=== PATIENT | male | born 1945 | race Caucasian/White ===

== ENCOUNTER 2023-05-07 18:54 | Inpatient (IN) | payer MEDICARE, OTHER ==
[~2023-05-07] VITALS: Ht 172.7 cm; Wt 67.1 kg
[2023-05-07 20:00] VITALS: BP 143/82; TEMP 97.9; O2SAT 94
[2023-05-07] MEDS ORDERED: MAGNESIUM HYDROXIDE 30 ML LIQUID UDC PO PRN (20:30)
[2023-05-07] MEDS ORDERED: MAG HYDROX/AL HYDROX/SIMETH 30 ML LIQUID UDC PO PRN (20:30)
[2023-05-07] MEDS ORDERED: OLAN2.5T3 PO (21:26)
[2023-05-07] MEDS ORDERED: BENZ0.5T43 PO (21:26)
[2023-05-07] MEDS ORDERED: AMLO5TAB4 PO (21:26)
[2023-05-07] MEDS ORDERED: TIOT18CA3 INH (21:26)
[2023-05-07] MEDS ORDERED: FAMO10TA41 PO (21:26)
[2023-05-07] MEDS ORDERED: DUTA0.5C37 PO (21:26)
[2023-05-07] MEDS ORDERED: DIVA-78 PO (21:26)
[2023-05-07] MEDS ORDERED: TAMS-3 PO (21:26)
[2023-05-07] MEDS: LORAZEPAM 0.5 MG TABLET PO PRN (22:38)
[2023-05-08] MEDS: TEMAZEPAM 7.5 MG CAPSULE PO PRN (02:13)
[2023-05-08 07:44] VITALS: BP 110/59; TEMP 98; O2SAT 98
[2023-05-08] MEDS: LORAZEPAM 0.5 MG TABLET PO PRN (09:34)
[2023-05-08] MEDS: DIVALPROEX SPRINKLE 125 MG CAP.SPRINK PO SCH ×2 (11:20→21:17)
[2023-05-08] MEDS: BENZTROPINE MESYLATE 0.5 MG TABLET PO SCH ×2 (11:20→17:16)
[2023-05-08] MEDS ORDERED: FLUO5DRO7 LEFTEYE (12:05)
[2023-05-08] MEDS ORDERED: PRAM0.253 PO (12:05)
[2023-05-08] MEDS ORDERED: MULT-1119 PO (12:05)
[2023-05-08] MEDS ORDERED: CHOL400C8 PO (12:05)
[2023-05-08] MEDS ORDERED: FAMO20TA8 PO (12:05)
[2023-05-08] MEDS ORDERED: DOCU-141 PO (12:05)
[2023-05-08] MEDS ORDERED: LATA2.5D15 EACHEYE (12:05)
[2023-05-08] MEDS ORDERED: ATOR20TA PO (12:05)
[2023-05-08] MEDS ORDERED: DEUT12TA PO (12:05)
[2023-05-08] MEDS ORDERED: HOME MED MISCELLANEOUS XX SCH (15:45)
[2023-05-08 16:07] VITALS: BP 107/70; TEMP 98.1; O2SAT 97
[2023-05-08] MEDS: AUSTEDO 12 MG PO SCH (17:30)
[2023-05-08 20:00] VITALS: BP 100/61; TEMP 97.8; O2SAT 93
[2023-05-08] MEDS ORDERED: OLANZAPINE 2.5 MG TABLET PO SCH (21:00)
[2023-05-09] MEDS: TEMAZEPAM 7.5 MG CAPSULE PO PRN (01:45)
[2023-05-09 08:16] VITALS: BP 142/84; TEMP 98; O2SAT 98
[2023-05-09] MEDS: DIVALPROEX SPRINKLE 125 MG CAP.SPRINK PO SCH ×2 (08:48→20:27)
[2023-05-09] MEDS: BENZTROPINE MESYLATE 0.5 MG TABLET PO SCH ×2 (08:48→17:15)
[2023-05-09] MEDS: AUSTEDO 12 MG PO SCH ×2 (08:51→17:16)
[2023-05-09 16:19] VITALS: BP 140/72; TEMP 98; O2SAT 97
[2023-05-09 19:49] VITALS: BP 146/76; TEMP 98.1; O2SAT 96
[2023-05-09] MEDS: OLANZAPINE 2.5 MG TABLET PO SCH (20:27)
[2023-05-09] MEDS: LORAZEPAM 0.5 MG TABLET PO PRN (22:44)
[2023-05-10] MEDS: LORAZEPAM 0.5 MG TABLET PO PRN (04:55)
[2023-05-10 07:54] VITALS: BP 136/79; TEMP 98; O2SAT 98
[2023-05-10] MEDS: AUSTEDO 12 MG PO SCH ×2 (08:38→17:14)
[2023-05-10] MEDS: BENZTROPINE MESYLATE 0.5 MG TABLET PO SCH ×2 (08:38→16:39)
[2023-05-10] MEDS: DIVALPROEX SPRINKLE 125 MG CAP.SPRINK PO SCH ×2 (08:38→20:39)
[2023-05-10 16:03] VITALS: BP 113/67; TEMP 98.1; O2SAT 98
[2023-05-10 20:00] VITALS: BP 130/71; TEMP 97.9; O2SAT 96
[2023-05-10] MEDS: OLANZAPINE 2.5 MG TABLET PO SCH (20:39)
[2023-05-10] MEDS: TEMAZEPAM 7.5 MG CAPSULE PO PRN (22:32)
[2023-05-11 07:39] LABS: BASOPHILS # (AUTO) 0.1 K/UL (0.0-0.2); BASOPHILS % (AUTO) 0.9 % (0.0-2.0); EOSINOPHILS % (AUTO) 0.5 % (0.0-7.0); HEMOGLOBIN 13.4 g/dL (12.5-16.3); LYMPHOCYTES # (AUTO) 1.5 K/uL (0.8-4.8); LYMPHOCYTES % (AUTO) 24.1 % (20.5-51.5); MEAN CORPUSCULAR HEMOGLOBIN 28.9 uug (23.8-33.4); MEAN CORPUSCULAR HGB CONC 33 g/dL (32.5-36.3); MEAN CORPUSCULAR VOLUME 88.2 fL (73.0-96.2); MONOCYTES # (AUTO) 0.6 K/uL (0.1-1.30); MONOCYTES % (AUTO) 9.1 % (0.0-11.0); NEUTROPHILS # (AUTO) 4.1 K/uL (1.8-8.9); NEUTROPHILS % (AUTO) 65.4 % (38.5-71.5); PLATELET COUNT (AUTO) 265 K/uL (152-348); RED BLOOD CELL COUNT(AUTO) 4.64 MIL/uL (4.06-5.63); RED CELL DISTRIBUTION WIDTH 18.6 % (12.1-16.2); WHITE BLOOD COUNT (AUTO) 6.3 K/uL (3.6-10.2)
[2023-05-11 07:42] LABS: DIFFERENTIAL COMMENT 1
[2023-05-11 07:58] LABS: ALANINE AMINOTRANSFERASE 17 U/L (16-63); ALKALINE PHOSPHATASE 87 U/L (50-136); ASPARTATE AMINOTRANSFERASE 13 U/L (15-37); BILIRUBIN,TOTAL 0.4 mg/dL (0.2-1.0); CARBON DIOXIDE 35 mmol/L (21-32); CHLORIDE 106 mmol/L (98-107); CREATININE 1.6 mg/dL (0.6-1.3); GLUCOSE 91 mg/dL (74-106); POTASSIUM 4.3 mmol/L (3.5-5.1); SODIUM SERUM 145 mmol/L (136-145); TOTAL PROTEIN, SERUM 8.7 g/dL (6.4-8.2); UREA NITROGEN, BLOOD 55 mg/dL (7-18); VALPROIC ACID 38 ug/mL (50-100)
[2023-05-11] MEDS: DIVALPROEX SPRINKLE 125 MG CAP.SPRINK PO SCH ×3 (09:22→17:00)
[2023-05-11] MEDS: BENZTROPINE MESYLATE 0.5 MG TABLET PO SCH ×2 (09:22→16:59)
[2023-05-11] MEDS: AUSTEDO 12 MG PO SCH ×2 (09:22→17:06)
[2023-05-11 09:39] VITALS: BP 139/85; TEMP 98.2; O2SAT 96
[2023-05-11 15:30] VITALS: BP 140/68; TEMP 98; O2SAT 98
[2023-05-11 19:39] VITALS: BP 119/80; TEMP 98; O2SAT 94
[2023-05-11] MEDS: OLANZAPINE 2.5 MG TABLET PO SCH (20:07)
[2023-05-11] MEDS: LORAZEPAM 0.5 MG TABLET PO PRN (21:19)
[2023-05-12] MEDS: TEMAZEPAM 7.5 MG CAPSULE PO PRN ×2 (01:20→21:52)
[2023-05-12 07:45] VITALS: BP 102/70; TEMP 98; O2SAT 100
[2023-05-12 07:46] LABS: BASOPHILS # (AUTO) 0.1 K/UL (0.0-0.2); BASOPHILS % (AUTO) 0.7 % (0.0-2.0); EOSINOPHILS % (AUTO) 0.4 % (0.0-7.0); HEMATOCRIT 39.4 % (36.7-47.1); HEMOGLOBIN 12.9 g/dL (12.5-16.3); LYMPHOCYTES # (AUTO) 1.5 K/uL (0.8-4.8); LYMPHOCYTES % (AUTO) 21.3 % (20.5-51.5); MEAN CORPUSCULAR HEMOGLOBIN 29.1 uug (23.8-33.4); MEAN CORPUSCULAR HGB CONC 33 g/dL (32.5-36.3); MEAN CORPUSCULAR VOLUME 89.3 fL (73.0-96.2); MONOCYTES # (AUTO) 0.6 K/uL (0.1-1.30); MONOCYTES % (AUTO) 8.8 % (0.0-11.0); NEUTROPHILS # (AUTO) 4.9 K/uL (1.8-8.9); NEUTROPHILS % (AUTO) 68.8 % (38.5-71.5); PLATELET COUNT (AUTO) 290 K/uL (152-348); RED BLOOD CELL COUNT(AUTO) 4.42 MIL/uL (4.06-5.63); RED CELL DISTRIBUTION WIDTH 18.5 % (12.1-16.2); WHITE BLOOD COUNT (AUTO) 7.1 K/uL (3.6-10.2)
[2023-05-12 07:48] LABS: DIFFERENTIAL COMMENT 1
[2023-05-12 08:06] LABS: ALANINE AMINOTRANSFERASE 17 U/L (16-63); ALBUMIN 2.9 g/dL (3.4-5.0); ALKALINE PHOSPHATASE 88 U/L (50-136); ASPARTATE AMINOTRANSFERASE 22 U/L (15-37); BILIRUBIN,TOTAL 0.4 mg/dL (0.2-1.0); CARBON DIOXIDE 34 mmol/L (21-32); CHLORIDE 106 mmol/L (98-107); CREATININE 1.6 mg/dL (0.6-1.3); GLUCOSE 99 mg/dL (74-106); MAGNESIUM 2.6 mg/dL (1.8-2.4); PHOSPHOROUS 4.2 mg/dL (2.5-4.9); POTASSIUM 4.3 mmol/L (3.5-5.1); SODIUM SERUM 145 mmol/L (136-145); TOTAL PROTEIN, SERUM 8.2 g/dL (6.4-8.2); UREA NITROGEN, BLOOD 60 mg/dL (7-18)
[2023-05-12] MEDS: BENZTROPINE MESYLATE 0.5 MG TABLET PO SCH ×2 (08:27→16:54)
[2023-05-12] MEDS: AUSTEDO 12 MG PO SCH ×2 (08:30→17:04)
[2023-05-12] MEDS: DIVALPROEX SPRINKLE 125 MG CAP.SPRINK PO SCH ×3 (08:30→16:55)
[2023-05-12 15:23] VITALS: BP 93/54; TEMP 98; O2SAT 96
[2023-05-12 20:00] VITALS: BP 111/61; TEMP 97.9; O2SAT 92
[2023-05-12] MEDS: OLANZAPINE 2.5 MG TABLET PO SCH (20:06)
[2023-05-13 02:16] LABS: *BILIRUBIN,URIN NEGATIVE (NEGATIVE); *BLOOD, URINE 2+ (NEGATIVE); *CLARITY,URINE HAZY (CLEAR); *COLOR,URINE YELLOW (YELLOW); *KETONES,URINE TRACE (NEGATIVE); *PROTEIN,URINE 3+ (NEGATIVE); *UROBILINOGEN,URINE 0.2 E.U./dl (NORMAL); LEUKOCYTE ESTERASE ,URINE 1+ (NEGATIVE); NITRITE, URINE NEGATIVE (NEGATIVE); UGLUCOSE NEGATIVE (NEGATIVE)
[2023-05-13 02:19] LABS: *CREATININE,URINE 72.5 mg/dL (30-125); *URINE TOTAL PROTEIN RANDOM 136.8 mg/dL (<150/24HR)
[2023-05-13] MEDS: LORAZEPAM 0.5 MG TABLET PO PRN (03:07)
[2023-05-13 03:43] LABS: BACTERIA,URINE FEW /HPF (NONE SEEN); RBC,URINE 20-50 /HPF (0-3); WBC,URINE 20-50 /HPF (0-3)
[2023-05-13 03:44] LABS: SQUAMOUS EPITHELIAL CELL,UR NONE SEEN /HPF (NONE SEEN)
[2023-05-13 08:02] VITALS: BP 110/72; TEMP 98.2; O2SAT 97
[2023-05-13] MEDS ORDERED: CEphaleXIN 500 MG CAPSULE PO SCH (09:30)
[2023-05-13] MEDS: BENZTROPINE MESYLATE 0.5 MG TABLET PO SCH ×2 (10:09→16:58)
[2023-05-13] MEDS: DIVALPROEX SPRINKLE 125 MG CAP.SPRINK PO SCH ×3 (10:09→16:59)
[2023-05-13] MEDS: AUSTEDO 12 MG PO SCH ×2 (10:12→17:02)
[2023-05-13] MEDS: CEphaleXIN 500 MG CAPSULE PO SCH ×2 (10:14→20:14)
[2023-05-13 15:55] VITALS: BP 106/60; TEMP 97.6; O2SAT 97
[2023-05-13 19:53] VITALS: BP 135/68; TEMP 98.1; O2SAT 95
[2023-05-13] MEDS: OLANZAPINE 2.5 MG TABLET PO SCH (20:14)
[2023-05-13] MEDS: TEMAZEPAM 7.5 MG CAPSULE PO PRN (22:23)
[2023-05-14 08:03] VITALS: BP 125/78; TEMP 98; O2SAT 96
[2023-05-14] MEDS: AUSTEDO 12 MG PO SCH ×2 (08:19→18:11)
[2023-05-14] MEDS: CEphaleXIN 500 MG CAPSULE PO SCH ×2 (08:19→20:26)
[2023-05-14] MEDS: DIVALPROEX SPRINKLE 125 MG CAP.SPRINK PO SCH ×3 (08:20→16:58)
[2023-05-14] MEDS: BENZTROPINE MESYLATE 0.5 MG TABLET PO SCH ×2 (08:20→16:57)
[2023-05-14 16:18] VITALS: BP 127/67; TEMP 98; O2SAT 96
[2023-05-14 20:00] VITALS: BP 119/74; TEMP 98; O2SAT 92
[2023-05-14] MEDS: TRAZODONE 50 MG TABLET PO SCH (20:25)
[2023-05-14] MEDS: OLANZAPINE 2.5 MG TABLET PO SCH (20:26)
[2023-05-14] MEDS: TEMAZEPAM 7.5 MG CAPSULE PO PRN (22:36)
[2023-05-15] MEDS: LORAZEPAM 0.5 MG TABLET PO PRN ×2 (06:08→19:58)
[2023-05-15 07:50] VITALS: BP 115/70; TEMP 98.2; O2SAT 96
[2023-05-15] MEDS: DIVALPROEX SPRINKLE 125 MG CAP.SPRINK PO SCH ×3 (08:17→16:35)
[2023-05-15] MEDS: BENZTROPINE MESYLATE 0.5 MG TABLET PO SCH ×2 (08:18→16:35)
[2023-05-15] MEDS: CEphaleXIN 500 MG CAPSULE PO SCH ×2 (08:19→19:59)
[2023-05-15] MEDS: AUSTEDO 12 MG PO SCH ×2 (08:20→17:33)
[2023-05-15 16:16] VITALS: BP 93/51; TEMP 98; O2SAT 97
[2023-05-15] MEDS: OLANZAPINE 2.5 MG TABLET PO SCH (19:59)
[2023-05-15 20:41] VITALS: BP 96/62; TEMP 96; O2SAT 95
[2023-05-15] MEDS: TRAZODONE 50 MG TABLET PO SCH (21:10)
[2023-05-16] MEDS: ACETAMINOPHEN 325 MG TABLET PO PRN (04:38)
[2023-05-16] MEDS: LORAZEPAM 0.5 MG TABLET PO PRN ×3 (04:38→20:55)
[2023-05-16] MEDS: AUSTEDO 12 MG PO SCH ×2 (08:14→17:44)
[2023-05-16] MEDS: BENZTROPINE MESYLATE 0.5 MG TABLET PO SCH ×2 (08:15→16:40)
[2023-05-16] MEDS: DIVALPROEX SPRINKLE 125 MG CAP.SPRINK PO SCH ×3 (08:15→16:40)
[2023-05-16 08:51] VITALS: BP 125/81; TEMP 98; O2SAT 97
[2023-05-16] MEDS: CEphaleXIN 500 MG CAPSULE PO SCH ×2 (08:58→20:54)
[2023-05-16 16:23] VITALS: BP 125/69; TEMP 98; O2SAT 97
[2023-05-16 20:33] VITALS: BP 120/69; TEMP 98; O2SAT 94
[2023-05-16] MEDS: TRAZODONE 50 MG TABLET PO SCH (20:54)
[2023-05-16] MEDS: OLANZAPINE 2.5 MG TABLET PO SCH (20:54)
[2023-05-16] MEDS: AMOXICILLIN-CLAVUL 875-125MG TABLET PO SCH (21:30)
[2023-05-17] MEDS: TEMAZEPAM 7.5 MG CAPSULE PO PRN (00:26)
[2023-05-17] MEDS: AUSTEDO 12 MG PO SCH ×2 (08:19→17:23)
[2023-05-17] MEDS: BENZTROPINE MESYLATE 0.5 MG TABLET PO SCH ×2 (08:19→16:48)
[2023-05-17] MEDS: DIVALPROEX SPRINKLE 125 MG CAP.SPRINK PO SCH ×3 (08:19→16:48)
[2023-05-17] MEDS: AMOXICILLIN-CLAVUL 875-125MG TABLET PO SCH ×2 (08:19→21:16)
[2023-05-17 08:41] VITALS: BP 120/80; TEMP 98.1; O2SAT 97
[2023-05-17] MEDS: LORAZEPAM 0.5 MG TABLET PO PRN ×2 (12:15→21:16)
[2023-05-17 16:08] VITALS: BP 111/74; TEMP 98; O2SAT 97
[2023-05-17 20:00] VITALS: BP 134/84; TEMP 97.9; O2SAT 97
[2023-05-17] MEDS: OLANZAPINE 2.5 MG TABLET PO SCH (21:15)
[2023-05-17] MEDS: TRAZODONE 50 MG TABLET PO SCH (21:15)
[2023-05-18] MEDS: TEMAZEPAM 7.5 MG CAPSULE PO PRN ×2 (02:16→22:03)
[2023-05-18 07:30] VITALS: BP 137/77; TEMP 98.4; O2SAT 96
[2023-05-18] MEDS: AMOXICILLIN-CLAVUL 875-125MG TABLET PO SCH ×2 (08:13→21:02)
[2023-05-18] MEDS: BENZTROPINE MESYLATE 0.5 MG TABLET PO SCH ×2 (08:13→16:56)
[2023-05-18] MEDS: DIVALPROEX SPRINKLE 125 MG CAP.SPRINK PO SCH ×3 (08:14→16:57)
[2023-05-18] MEDS: AUSTEDO 12 MG PO SCH ×2 (08:15→17:17)
[2023-05-18] MEDS ORDERED: ALBUTEROL SULFATE 8 GM HFA.AER.AD IH PRN (10:15)
[2023-05-18] MEDS ORDERED: ALBUTEROL SULFATE 1.25 MG/3 ML NEBU NEB PRN (10:30)
[2023-05-18] MEDS: ACETAMINOPHEN 325 MG TABLET PO PRN (12:36)
[2023-05-18 15:28] VITALS: BP 123/73; TEMP 98.2; O2SAT 99
[2023-05-18] MEDS: DOCUSATE SODIUM 100 MG CAPSULE PO SCH (16:56)
[2023-05-18] MEDS: PRAMIPEXOLE 0.25 MG TABLET PO SCH (16:56)
[2023-05-18 20:00] VITALS: BP 131/69; TEMP 98.9; O2SAT 93
[2023-05-18] MEDS ORDERED: LATANOPROST OPHT DROP 2.5 ML BOTTLE EACHEYE SCH (21:00)
[2023-05-18] MEDS ORDERED: TAMSULOSIN HCL 0.4 MG CAP.SR.24H PO SCH (21:00)
[2023-05-18] MEDS ORDERED: ATORVASTATIN 20 MG TABLET PO SCH (21:00)
[2023-05-18] MEDS: OLANZAPINE 2.5 MG TABLET PO SCH (21:06)
[2023-05-18] MEDS: TRAZODONE 50 MG TABLET PO SCH (21:07)
[2023-05-19] MEDS: LORAZEPAM 0.5 MG TABLET PO PRN (01:18)
[2023-05-19 08:14] VITALS: BP 103/68; TEMP 98.2; O2SAT 98
[2023-05-19] MEDS: BENZTROPINE MESYLATE 0.5 MG TABLET PO SCH ×2 (08:48→17:23)
[2023-05-19] MEDS: DOCUSATE SODIUM 100 MG CAPSULE PO SCH ×2 (08:48→17:23)
[2023-05-19] MEDS: DIVALPROEX SPRINKLE 125 MG CAP.SPRINK PO SCH ×3 (08:48→17:23)
[2023-05-19] MEDS: AMOXICILLIN-CLAVUL 875-125MG TABLET PO SCH (08:48)
[2023-05-19] MEDS: AUSTEDO 12 MG PO SCH ×2 (08:49→18:00)
[2023-05-19] MEDS: PRAMIPEXOLE 0.25 MG TABLET PO SCH ×2 (08:49→17:37)
[2023-05-19] MEDS ORDERED: CHOLECALCIFEROL 1,000 UNIT TABLET PO SCH (09:00)
[2023-05-19] MEDS ORDERED: Medication Not On Formulary EA (Cholecalciferol (Vitamin D3) (Vitamin D3) 5,000 UNITS) PO SCH (09:00)
[2023-05-19] MEDS ORDERED: Medication Not On Formulary EA (Multivitamin (Multi Vitamin Daily) 1 EACH) PO SCH (09:00)
[2023-05-19] MEDS ORDERED: FAMOTIDINE 20 MG TABLET PO SCH (09:00)
[2023-05-19] MEDS ORDERED: AMLODIPINE 5 MG TABLET PO SCH (09:00)
[2023-05-19] MEDS ORDERED: MULTIVIT, IRON, MIN NO. 8, FA TABLET PO SCH (09:00)
[2023-05-19] MEDS ORDERED: DUTASTERIDE 0.5 MG CAPSULE PO SCH (09:00)
[2023-05-19 15:43] VITALS: BP 99/75; TEMP 98.2; O2SAT 98
== END 2023-05-19 19:00 | DRG 885 ==
LOC: GPS 18:54
PROVIDERS: ADMIT Psychiatry & Neurology Psychosomatic Medicine; ATTEND Nurse Practitioner Acute Care
DX: F25.9 Schizoaffective disorder, unspecified (principal); N18.4 Chronic kidney disease, stage 4 (severe); N17.0 Acute kidney failure with tubular necrosis; G93.41 Metabolic encephalopathy; N39.0 Urinary tract infection, site not specified; F20.9 Schizophrenia, unspecified; I12.9 Hypertensive chronic kidney disease with stage 1 through stage 4 chronic kidney disease, or unspecified chronic kidney disease; E78.5 Hyperlipidemia, unspecified; F32.A Depression, unspecified; H40.9 Unspecified glaucoma; Z86.73 Personal history of transient ischemic attack (TIA), and cerebral infarction without residual deficits; N40.1 Benign prostatic hyperplasia with lower urinary tract symptoms; Z20.822 Contact with and (suspected) exposure to COVID-19; F29 Unspecified psychosis not due to a substance or known physiological condition; E88.9 Metabolic disorder, unspecified; B96.4 Proteus (mirabilis) (morganii) as the cause of diseases classified elsewhere; F39 Unspecified mood [affective] disorder
CPT/HCPCS: 36415; 76770; 80164; 83735; 84100; 84300; 85025; A6209